=== PATIENT | male | born 1950 | race Caucasian/White ===

== ENCOUNTER → 2016-03-29 | Outpatient (CLI) | payer OTHER ==
--- NOTE | 2016-03-29 09:10 | XR ---
EXAMINATION TYPE: XR chest 2V DATE OF EXAM: 03/29/2016 8:36 AM COMPARISON: None HISTORY: 65-year-old male with chronic cough for a couple months TECHNIQUE: Frontal and lateral views FINDINGS: The cardiomediastinal silhouette, aorta, and pulmonary vasculature are within normal limits. Some str sarika atelectasis in the lower lungs. There is mild peribronchial cuffing noted centrally. No consolid ation or pleural effusion. IMPRESSION: Some central peribronchial cuffing could reflect bronchitis or chronic asthma.
== END | disposition home or self-care (01) ==
LOC: RADXRMAIN 08:20
PROVIDERS: ATTEND Family Medicine
DX: R05 Cough (principal)
CPT/HCPCS: 71020

== ENCOUNTER → 2018-01-04 | Outpatient (CLI) | payer MEDICARE ==
--- NOTE | 2018-01-04 12:47 | MR ---
EXAMINATION TYPE: MR shoulder LT wo con DATE OF EXAM: 01/04/2018 COMPARISON: None HISTORY: Pain left shoulder TECHNIQUE: Multiplanar, multisequence imaging of the left shoulder is performed without contrast. FINDINGS: Rotator Cuff: There is a high-grade full-thickness tear of the anterior and mid fibers of the suprasp inatus measuring 1.1 cm with retraction and undulation of the supraspinatus abnormally high signal an terior fibers 1.6 cm. Posterior fibers appear intact with increased signal relating to tendinopathy. There is a low-grade partial-thickness bursal surface tear of the infraspinatus measuring approximate ly 1 x 1.3 cm with bursal surface fraying of the fibers. The infraspinatus is unremarkable in muscle volume and signal. There is a partial thickness tear of the subscapularis with few mid fibers remaining and undulation o f the more cranial fibers. Acromioclavicular Joint: There is moderate acromioclavicular arthropathy with capsular hypertrophy an d joint space narrowing as well as marginal osteophytes. Glenohumeral Joint: Mild joint space narrowing is noted. There is a moderate joint effusion without i nternal complexity. Labrum: There is a nondisplaced tear of the posterior inferior labrum. Remainder of the labrum appear s grossly intact. Biceps Tendon: There is a full-thickness tear of the long head of the biceps with absence in the bici pital groove. Only fluid is seen where the intra-articular portion of the biceps should be seen. Bone marrow signal: No focal abnormal marrow signal is appreciated. Other: Moderate amount of fluid is seen within the subdeltoid/subacromial bursa as well as within the subcoracoid bursa. IMPRESSION: 1. High-grade full-thickness tear of the anterior and mid fibers of the supraspinatus with 1.6 cm ret raction and undulation of the torn fibers and superimposed moderate tendinopathy. 2. Complete tear of the biceps with the long head of the biceps remaining extra-articular and only cali int fluid seen in the bicipital groove. 3. Low-grade partial-thickness bursal surface tear of infraspinatus. 4. Partial thickness tear of the subscapularis with mid fibers remaining. 5. Moderate joint effusion with fluid in the subacromial/subdeltoid bursa and subcoracoid bursa. 6. Nondisplaced tear of the posterior inferior labrum.
== END ==
LOC: RADMRIMAIN 07:37
PROVIDERS: ATTEND Orthopaedic Surgery
DX: M75.122 Complete rotator cuff tear or rupture of left shoulder, not specified as traumatic (principal); M75.82 Other shoulder lesions, left shoulder; S46.112A Strain of muscle, fascia and tendon of long head of biceps, left arm, initial encounter; S43.492A Other sprain of left shoulder joint, initial encounter; M25.812 Other specified joint disorders, left shoulder

== ENCOUNTER 2018-03-02 05:45 | Day surgery (SDC) | payer MEDICARE ==
--- NOTE | 2018-03-01 15:47 | HP ---
HISTORY AND PHYSICAL DATE OF SURGERY: 03/02/2018 Stuart Pereyra is a 67-year-old patient seen with progressive left shoulder pain. Treatment options were discussed. He elected to proceed with arthroscopy. Consent obtained. PAST MEDICAL HISTORY: 1. Asthma. 2. Jjv-kjudimi-isqudiseq diabetes. 3. Hypertension. PAST SURGICAL HISTORY: Gastric sleeve. DAILY MEDICATIONS: Celexa and Lotrel. ALLERGIES: PENICILLIN. SOCIAL HISTORY: Patient denies tobacco use. PHYSICAL EVALUATION OF LEFT SHOULDER: Flexion 160 degrees, abduction 150 degrees, external rotation 60 degrees with some pain and weakness. There is tenderness along the anterior lateral acromion and rotator cuff insertion site. Impingement sign is positive at 90 degrees. Drop-arm sign is positive. Distal neurovascular exam is intact. LEFT SHOULDER RADIOGRAPHS: Left shoulder radiographs revealed a type 2 anterior acromion, cystic changes of the tuberosity. An MRI of the left shoulder revealed a retracted rotator cuff tear. IMPRESSION: 1. Left shoulder impingement with rotator cuff tear. 2. Hypertension. PLAN: Left shoulder arthroscopy with subacromial decompression, probable arthroscopic rotator cuff repair and debridement. MMODL / IJN: [id number] /
[2018-03-02] MEDS ORDERED: LIDOCAINE 1% 20 ML VIAL (10MG/ML) FOR IV START INTRADERMA PRN (05:56)
[2018-03-02] MEDS ORDERED: SCOPOLAMINE 1.5MG/72HR PATCH TRANSDERM ONE (05:56)
[2018-03-02] MEDS ORDERED: LACTATED RINGERS 1,000 ML IV SCH (05:56)
[2018-03-02] MEDS ORDERED: MIDAZOLAM (PF) 2 MG/2 ML VIAL IV PRN (05:56)
[2018-03-02] MEDS ORDERED: ceFAZolin IN SWFI 2 GM/20 ML SYRINGE IVP ONE (06:00)
[2018-03-02] MEDS: DEXAMETHASONE SOD PHOSPHATE 10 MG/ML 1 ML VIAL IV ONE ×2 (06:50→07:20)
[2018-03-02] MEDS: ONDANSETRON 4 MG/2 ML VIAL IVP ONE ×2 (06:50→07:20)
[2018-03-02 06:54] LABS: Glucose,Whole Blood 99 mg/dL (75-99)
[2018-03-02] MEDS ORDERED: PROPOFOL 10 MG/ML 20 ML VIAL IV ONE (07:20)
[2018-03-02] MEDS ORDERED: ROPIVACAINE 5 MG/ML 30 ML VIAL ONE (07:20)
[2018-03-02] MEDS ORDERED: MIDAZOLAM 2 MG/2 ML VIAL ONE (07:20)
[2018-03-02] MEDS ORDERED: LIDOCAINE 1% INJ 10MG/ML (20 ML MDV) ONE (07:20)
[2018-03-02] MEDS ORDERED: fentaNYL (PF) 50 MCG/ML 2 ML AMP ONE (07:20)
[2018-03-02] MEDS ORDERED: SUCCINYLCHOLINE CHLORIDE 100 MG/5 ML SYR IV ONE (07:20)
--- NOTE | 2018-03-02 09:04 | P.OP ---
Date of Procedure: 03/02/18 Preoperative Diagnosis: Left shoulder impingement Postoperative Diagnosis: 1. Left shoulder rotator cuff tear 2. Left shoulder impingement 3. Left shoulder acromioclavicular joint osteoarthritis Procedure(s) Performed: 1. Left shoulder arthroscopic rotator cuff repair 2. Left shoulder arthroscopic subacromial decompression 3. Left shoulder arthroscopic Thomas procedure Implants: 15.5 Arthrex swivel lock anchor Anesthesia: GETA, regional (Interscalene block) Surgeon: Bruno Tanner [employer]ining [employer] Sewer #1: Jesus Biswas Estimated Blood Loss (ml): 11 Pathology: none sent Condition: stable Disposition: PACU Indications for Procedure: 67-year-old patient seen with progressive left shoulder pain. After having treatment options discussed, he elected to proceed with arthroscopy. Operative Findings: see description of procedure Description of Procedure: Patient underwent an interscalene block by department of anesthesia. The patient was then taken to the operative suite. The patient underwent a general anesthetic by the department of anesthesia. The patient was placed into a lateral position and secured. There was appropriate padding of the bony prominence. Left shoulder was then prepped and draped in normal sterile orthopedic fashion. We placed the extremity in 10 pounds of longitudinal traction. A posterior incision was now made for a posterior working portal site. The trocar and cannula were inserted into the glenohumeral joint. Arthroscopy was initiated. Spinal needle was now inserted anteriorly, to ascertain the anterior working portal site. An incision was now made in that area, a trocar was inserted followed by a probe. There was absence long head biceps tendon. There was some superficial fraying of the superior labrum. There was an obvious rotator cuff tear I could visualize from the glenohumeral side. There were grade 1 chondromalacia changes of the humeral head and grade 1 /2 chondromalacia changes of the glenoid. I debrided out that superficial labral tear. Instruments were now removed from glenohumeral joint. Utilizing the posterior working portal site, the trocar and cannula were inserted into the subacromial space. Arthroscopy initiated. I made an incision 2 fingerbreadths lateral to the acromion. I introduced my trocar followed by my ArthroCare ablator. I now began ablating thick subacromial bursal tissue, which exposed the undersurface of the anterior acromion. There was diminished subacromial space. There was a very prominent anterior acromion. A motorized bur was introduced and a subacromial decompression was performed. I also excised some osteophytes off the inferior aspect of the distal clavicle. The AC joint was visualized and noted to be fairly arthritic. The motorized bur was introduced in the anterior portal site and a Thomas procedure was performed without difficulty, decompressing the AC joint nicely. I turned my attention to the rotator cuff. There was a 22.5 cm tear of the anterior aspect distal supraspinatus. There was a large component of this that was intrasubstance. I debrided the margins getting down to stable tendon tissue. I abraded the footprint with a motorized bur. I repaired the intrasubstance component with 2 [id number] single sutures. I then passed and everted mattress suture followed by a suture link through good bites of rotator cuff tendon. I now punched a hole at the abraded footprint site for anchor insertion. The suture limbs were passed through and Arthrex 5.5 swivel lock anchor. The eyelet was now inserted into the pre-punch hole. Jey BRANTLEY tension the sutures appropriately and was held the anchor position he introduced anchor into our pre -punch hole with good purchase noted. Residual suture limbs were clipped. The repair was probed and found to be stable. I injected 1 mL Renue intra- articular. Instruments now removed from the portal sites. All portal sites were approximated with nylon suture. Sterile dressings were applied followed by a shoulder sling. Jesus BRANTLEY assisted in this complex case. The patient was awakened, transferred to a bed, and taken to recovery in stable condition.
[2018-03-02 09:09] VITALS: TEMP 97
[2018-03-02] MEDS: HYDROmorphone 0.5 MG/0.5 ML SYRINGE IVP PRN ×2 (09:15→09:23)
[2018-03-02] MEDS ORDERED: KETOROLAC 30 MG/ML 1 ML VIAL IVP ONE (09:15)
[2018-03-02 09:24] LABS: Glucose,Whole Blood 115 mg/dL (75-99)
[2018-03-02] MEDS ORDERED: HYDROcodone/APAP 7.5-325MG 1 EACH TAB PO ONE (09:56)
[2018-03-02 10:11] VITALS: RESP 16
[2018-03-02 10:25] VITALS: BP 141/82; PULSE 88
--- NOTE | 2018-03-03 07:59 | P.ONQ ---
Anesthesiology Proc Note - PNB - Peripheral Nerve Block Performed Left Interscalene Single Time Out Performed: Yes Procedure Start Time: 06:55 Procedure Stop Time: 07:06 Indication: Acute Post-Operative Pain, Requested by physician Sedation Type: Sedate with meaningful contact maintained Preparation: Sterile Prep Needle Size: 50mm (2") Needle Gauge: 21 Technique: Ultrasound (ropi .5% 30cc) Blood Aspirated: No Pain Paresthesia on Injection Noted: No Resistance on Injection: Normal Events: Uneventful and Well Tolerated
== END 2018-03-02 10:41 | disposition home or self-care (01) ==
LOC: OR 05:45
PROVIDERS: ATTEND Orthopaedic Surgery
DX: M75.102 Unspecified rotator cuff tear or rupture of left shoulder, not specified as traumatic (principal); M75.42 Impingement syndrome of left shoulder; M19.012 Primary osteoarthritis, left shoulder; M94.212 Chondromalacia, left shoulder; S43.492A Other sprain of left shoulder joint, initial encounter; X58.XXXA Exposure to other specified factors, initial encounter; M25.712 Osteophyte, left shoulder; E11.9 Type 2 diabetes mellitus without complications; E66.9 Obesity, unspecified; Z68.39 Body mass index [BMI] 39.0-39.9, adult; I10 Essential (primary) hypertension; E03.9 Hypothyroidism, unspecified; J45.909 Unspecified asthma, uncomplicated; K21.9 Gastro-esophageal reflux disease without esophagitis; Z79.84 Long term (current) use of oral hypoglycemic drugs; Z79.890 Hormone replacement therapy; Z79.899 Other long term (current) drug therapy; Z98.84 Bariatric surgery status; Z90.3 Acquired absence of stomach [part of]; Z88.0 Allergy status to penicillin
CPT/HCPCS: 64415; 29824; 29827; 29826; C1713 ×3; C1765; J2250 ×2; J1100; J2405; J2001; J3010; J1885; J2795; J0330; J2704; J1170; J0690

== ENCOUNTER → 2020-02-27 | Outpatient (CLI) | payer MEDICARE ==
--- NOTE | 2020-02-28 02:02 | MR ---
EXAMINATION TYPE: MR shoulder LT wo con DATE OF EXAM: 02/27/2020 COMPARISON: 12/27/2017 HISTORY: Left shoulder pain for 6 months. Multiplanar multiecho imaging of the left shoulder was performed without contrast. There is moderate shoulder joint effusion. Glenoid krysta appear intact. Subscapularis tendon is intac t. There is some spurring at the AC joint. There is metal artifact from surgery at the greater tuberosit y of the humerus. There is very slight thickening and increased signal in the supraspinatus tendon. T here is large defect in the rotator cuff on the anterior aspect of the humeral head with full-thickne ss tear. This is best seen on the sagittal images. There is no evidence of a fracture. I see no focal bone destruction. The biceps tendon shows some thi nning. I see no biceps tendon tear. IMPRESSION: Shoulder joint effusion is smaller than old exam. There is apparent surgery at the greater tuberosity of the humerus and repair of the biceps tendon. There is large rotator cuff tear with large defect on the anterior aspect of the humeral head. There is no significant retraction of the tendon. This appears unchanged compared to old exam.
== END | disposition home or self-care (01) ==
LOC: RADMRIMAIN 19:08
PROVIDERS: ATTEND Orthopaedic Surgery
DX: M75.102 Unspecified rotator cuff tear or rupture of left shoulder, not specified as traumatic (principal); M25.412 Effusion, left shoulder; Z98.890 Other specified postprocedural states

== ENCOUNTER → 2020-03-06 | Outpatient (CLI) | payer MEDICARE ==
[2020-03-06 08:01] LABS: HCT 35.3 % (39.0-53.0); HGB 11.2 gm/dL (13.0-17.5); Hypochromasia Slight; MCH 27.2 pg (25.0-35.0); MCHC 31.8 g/dL (31.0-37.0); MCV 85.4 fL (80.0-100.0); Platelet Count 263 k/uL (150-450); RBC 4.13 m/uL (4.30-5.90); RDW 14.6 % (11.5-15.5); WBC 7.8 k/uL (3.8-10.6)
[2020-03-06 08:17] LABS: Potassium 4.3 mmol/L (3.5-5.1)
[2020-03-06 09:32] LABS: Eosinophils # (M) 0.08 k/uL (0-0.7); Lymphocytes # (M) 2.03 k/uL (1.0-4.8); Monocytes # (M) 0.16 k/uL (0-1.0); Neutrophils # (M) 5.54 k/uL (1.3-7.7); Neutrophils % (M) 71 %; Nucleated Red Blood Cells 0 /100 WBC (0-0); Total Cells Counted 100
== END | disposition home or self-care (01) ==
LOC: LABPAT 07:21
PROVIDERS: ATTEND Orthopaedic Surgery
DX: M75.42 Impingement syndrome of left shoulder (principal)
CPT/HCPCS: 36415; 80051; 85025; 93005

== ENCOUNTER 2020-03-27 07:11 | Day surgery (SDC) | payer MEDICARE ==
[2020-03-25 13:43] VITALS: BMI 36.9
--- NOTE | 2020-03-26 17:24 | HP ---
HISTORY AND PHYSICAL DATE OF SURGERY: 03/27/2020 Stuart Pereyra is a 69-year-old gentleman seen with progressive left shoulder pain. We discussed options for treatment. He elected to proceed with arthroscopy. Consent regarding the procedure was obtained. PAST MEDICAL HISTORY: Hypertension, [id number] diabetes, asthma. PAST SURGICAL HISTORY: Left shoulder arthroscopy. DAILY MEDICATIONS: Amlodipine, benazepril, loratadine, metformin, omeprazole. ALLERGIES: PENICILLIN. SOCIAL HISTORY: He denies tobacco use. PHYSICAL EVALUATION OF THE LEFT SHOULDER: Flexion is 150 degrees. Abduction is 130 degrees. External rotation is 30 degrees with pain and weakness. Tenderness along the anterolateral acromion and rotator cuff insertion site. Impingement is positive at 80. Drop-arm sign is positive. Distal neurovascular exam is intact. RADIOGRAPHS: Radiographs of the left shoulder show flat acromion. MRI of left shoulder shows large rotator cuff tendon tear. IMPRESSION: 1. Left shoulder impingement with rotator cuff tear. 2. Hypertension. 3. Hyperlipidemia. PLAN: Left shoulder arthroscopy, subacromial decompression, arthroscopic rotator cuff repair and debridement. MMODL / IJN: [id number] /
[~2020-03-27 07:11] MED LIST: DEXAMETHASONE SOD PHOSPHATE 4 MG/ML 1 ML VIAL IV ONE; HYDROmorphone 0.5 MG/0.5 ML SYRINGE IVP PRN; LACTATED RINGERS 1,000 ML IV SCH; MIDAZOLAM 2 MG/2 ML VIAL IV PRN; ONDANSETRON 4 MG/2 ML VIAL IVP ONE
[2020-03-27 08:08] LABS: Glucose,Whole Blood 101 mg/dL (75-99)
[2020-03-27] MEDS ORDERED: LIDOCAINE 1% (10MG/ML) FOR IV START INTRADERMA ONE (08:11)
--- NOTE | 2020-03-27 08:55 | P.ANPRN ---
Procedure Note - Anesthesia - Nerve Block Performed Left Interscalene Single Time Out Performed: Yes Date of Procedure: 03/27/20 Procedure Start Time: : Procedure Stop Time: Location of Patient: PreOp Indication: Acute Post-Operative Pain, Requested by Surgeon Sedation Type: Sedate with meaningful contact maintained Preparation: Sterile Prep Position: Supine Needle Types: Pajunk Needle Gauge: 21 Ultrasound used to visualize needle placement: Yes Ultrasound used to observe medication spread: Yes Blood Aspirated: No Pain Paresthesia on Injection Noted: No Resistance on Injection: Normal Image Stored and Saved: Yes Events: Uneventful and Well Tolerated (ropi .5% 20 cc plus dexamethasone 4mg)
[2020-03-27] MEDS ORDERED: PROPOFOL 10 MG/ML 20 ML VIAL IV ONE (09:05)
[2020-03-27] MEDS ORDERED: SUCCINYLCHOLINE CHLORIDE 100 MG/5 ML SYR IV ONE (09:05)
[2020-03-27] MEDS ORDERED: PHENYLEPHRINE-0.9% NACL SYG 1,000 MCG/10 ML SYRINGE ONE (09:05)
[2020-03-27] MEDS ORDERED: LIDOCAINE 1% INJ 10MG/ML (20 ML MDV) ONE (09:05)
[2020-03-27] MEDS ORDERED: GLYCOPYRROLATE 0.2 MG/ML 2 ML VIAL ONE (09:05)
[2020-03-27] MEDS ORDERED: DEXAMETHASONE SOD PHOSPHATE 4 MG/ML 1 ML VIAL ONE (09:05)
[2020-03-27] MEDS ORDERED: MIDAZOLAM 2 MG/2 ML VIAL ONE (09:05)
[2020-03-27] MEDS ORDERED: ROPIVACAINE 5 MG/ML 30 ML VIAL ONE (09:05)
[2020-03-27] MEDS ORDERED: LACTATED RINGERS 1,000 ML IV ONE (10:28)
--- NOTE | 2020-03-27 11:17 | P.OP ---
Date of Procedure: 03/27/20 Preoperative Diagnosis: Left shoulder impingement Postoperative Diagnosis: 1. Left shoulder rotator cuff tear 2. Left shoulder impingement Procedure(s) Performed: 1. Left shoulder arthroscopic rotator cuff repair 2. Left shoulder arthroscopic subacromial decompression Anesthesia: GETA, regional (Interscalene block) Surgeon: Bruno Tanner Supervisor [employer] #1: Jesus Biswas Estimated Blood Loss (ml): 11 Pathology: none sent Condition: stable Disposition: PACU Indications for Procedure: 69-year-old gentleman seen with progressive left shoulder pain. After treatment options were discussed with him, he elected to proceed with arthroscopy. Operative Findings: See description of procedure Description of Procedure: Patient underwent an interscalene block by department of anesthesia. The p atient was then taken to the operative suite. The patient underwent a general anesthetic by the department of anesthesia. The patient was placed into a lateral position and secured. There was appropriate padding of the bony prominence. Left shoulder was then prepped and draped in normal sterile orthopedic fashion. We placed the extremity in 10 pounds of longitudinal traction. A posterior incision was now made for a posterior working portal site. The trocar and cannula were inserted into the glenohumeral joint. Arthroscopy was initiated. Spinal needle was now inserted anteriorly, to ascertain the anterior working portal site. An incision was now made in that area, a trocar was inserted followed by a probe. There were some grade 1 chondromalacia changes diffusely about the glenohumeral joint with no osteochondral tears present. The labrum was stable. The biceps tendon was absent. There was evidence of a massive rotator cuff tear visualized from glenohumeral joint. At this point instruments removed from the glenohumeral joint. Utilizing the posterior working portal site, the trocar and cannula were inserted into the subacromial space. Arthroscopy initiated. I made an incision 2 fingerbreadths lateral to the acromion. I introduced my trocar followed by my ArthroCare ablator. I now began ablating thick subacromial bursal tissue, which exposed the undersurface of the anterior acromion. There was a residual area of bony prominence along the medial aspect of the acromion. I introduced a motorized shaver and performed a decompression of that area. We now had complete decompression of subacromial space. I turned my attention to the rotator cuff tendon. There was a massive intrasubstance tear measuring approximately 5 cm. At this point I began meticulously freeing up the margins and I was ultimately able to free it up enough for could approximate the tear. The area of residual repair revealed a stable appearing anchor with some residual suture was which I debrided out. I now created an security control assessor portal site anterior laterally. I now began passing interrupted sutures through the large tendon tear with the assistance of Jey BRANTLEY. I passed a total of 7 sutures. I now with this is of Jey BRANTLEY began preparing the tendon tied 1 suture at a time beginning proximally. I tied all sutures no residual suture limbs were clipped. We had a reasonable repair of this complex intrasubstance tear. I injected 1 mL Renyte intra-articular. Instruments now removed from the portal sites. All portal sites were approximated with nylon suture. Sterile dr adkins were applied followed by a shoulder sling. Jesus BRANTLEY assisted in this complex case. The patient was awakened, transferred to a bed, and taken to recovery in stable condition.
[2020-03-27 11:27] VITALS: TEMP 97
[2020-03-27 11:34] LABS: Glucose,Whole Blood 155 mg/dL (75-99)
[2020-03-27 11:37] VITALS: RESP 16
[2020-03-27 12:17] VITALS: PULSE 75
[2020-03-27] MEDS ORDERED: HYDROcodone/APAP 7.5-325MG 1 EACH TAB ONE (12:20)
[2020-03-27] MEDS ORDERED: HYDROcodone/APAP 7.5-325MG 1 EACH TAB PO ONE (12:23)
[2020-03-27 12:47] VITALS: BP 101/65
== END 2020-03-27 13:08 | disposition home or self-care (01) ==
LOC: OR 07:11
PROVIDERS: ATTEND Orthopaedic Surgery
DX: M75.102 Unspecified rotator cuff tear or rupture of left shoulder, not specified as traumatic (principal); M25.812 Other specified joint disorders, left shoulder; M19.90 Unspecified osteoarthritis, unspecified site; M94.212 Chondromalacia, left shoulder; I10 Essential (primary) hypertension; E78.5 Hyperlipidemia, unspecified; E11.9 Type 2 diabetes mellitus without complications; J45.909 Unspecified asthma, uncomplicated; G47.33 Obstructive sleep apnea (adult) (pediatric); Z99.89 Dependence on other enabling machines and devices; Z98.84 Bariatric surgery status; Z79.84 Long term (current) use of oral hypoglycemic drugs; Z79.899 Other long term (current) drug therapy; Z88.0 Allergy status to penicillin
CPT/HCPCS: 64415; 76942; 29826; 29827; C1713; Q4212; J2250; J1100; J0690; J2405; J2001; J2795; J2370; J0330; J2704